=== PATIENT | female | born 1960 | race Caucasian/White ===

== ENCOUNTER 2021-05-18 08:37 | Emergency (ER) | payer BC, MEDICAID ==
[~2021-05-18] VITALS: Ht 170.2 cm; Wt 100.0 kg
[2021-05-18 08:38] VITALS: BP 134/58
[2021-05-18] MEDS ORDERED: ACETAMINOPHEN 500 MG TABLET PO ONE (09:30)
[2021-05-18] MEDS ORDERED: IBUPROFEN 600 MG TABLET PO ONE (09:30)
== END 2021-05-18 11:03 | disposition home or self-care (01) ==
LOC: EMS 08:43
DX: M17.11 Unilateral primary osteoarthritis, right knee (principal); E11.9 Type 2 diabetes mellitus without complications
CPT/HCPCS: 99283